=== PATIENT | female | born 1990 | race Asian ===

== ENCOUNTER 2016-04-23 13:04 | Inpatient (IN) | payer BC ==
[~2016-04-23] VITALS: Ht 157.5 cm; Wt 67.5 kg
[2016-04-23] VITALS (15 sets, daily range): BP systolic 115–136; BP diastolic 60–77
[2016-04-23] MEDS ORDERED: PRENATAL TABLE1 EACH PO (14:00)
[2016-04-23 14:18] LABS: HEMATOCRIT 35.4 % (36.0-46.0); MCH 30.3 PG (29.0-34.0); MCHC 35.3 G/DL (30.0-36.0); MCV 85.9 FL (83-99); MEAN PLAT.VOLUME 10.4 uM^3 (9.5-12.4); NRBC (%) 0.7 /100 WBC (0-0); PLATELET COUNT 194 K/uL (156-360); RBC DIS.WIDTH-CV 14.8 % (11.8-14.6); RBC DIS.WIDTH-SD 46.2 % (39-53); RED BLOOD COUNT 4.12 M/uL (3.80-5.20); WHITE BLOOD COUNT 8.6 K/uL (4.1-10.2)
[2016-04-23 16:14] LABS: ABS NEUTROPHIL COUNT 5.01; ANISOCYTOSIS 1+; PLAT.SUFFICIENCY ADEQUATE; USER ID NPD
[2016-04-23 16:15] LABS: DELETE MACHINE DIFF? YES
[2016-04-24] VITALS (9 sets, daily range): BP systolic 108–122; BP diastolic 57–71
[2016-04-24] MEDS ORDERED: PERCOCET 5/31 TABLET PO (00:55)
[2016-04-24] MEDS ORDERED: MOTRIN800 MG PO (00:55)
[2016-04-25 07:59] VITALS: BP 116/67
[2016-04-25 09:14] LABS: EOSINOPHIL (%) 1.6 % (0-5); EOSINOPHIL COUNT 0.2 K/uL (0-0.3); IMMATURE GRANULOCYTE (%) 0.4 % (0.0-0.7); LYMPHOCYTE COUNT 2.1 K/uL (1.0-2.8); MCH 29.6 PG (29.0-34.0); MCHC 33.9 G/DL (30.0-36.0); MCV 87.1 FL (83-99); MEAN PLAT.VOLUME 10.7 uM^3 (9.5-12.4); MONOCYTE (%) 4.3 % (3-12); MONOCYTE COUNT 0.5 K/uL (0-0.8); NEUTROPHIL (%) 74.5 % (45-76); NEUTROPHIL COUNT 8.4 K/uL (1.8-6.4); PLATELET COUNT 186 K/uL (156-360); RBC DIS.WIDTH-CV 14.9 % (11.8-14.6); RBC DIS.WIDTH-SD 46.4 % (39-53); RED BLOOD COUNT 3.79 M/uL (3.80-5.20)
[2016-04-25 09:18] LABS: WHITE BLOOD COUNT 11.3 K/uL (4.1-10.2)
== END 2016-04-25 17:29 | disposition home or self-care (01) | DRG 775 ==
LOC: LDRP-OP 13:04 → 2WEST 13:05 → LDRP-OP 05-30 10:26
PROVIDERS: Midwife
PROC: 10E0XZZ Delivery of Products of Conception, External Approach (ICD-10-PCS; principal; 2016-04-23)
PROC: 0KQM0ZZ Repair Perineum Muscle, Open Approach (ICD-10-PCS; principal; 2016-04-23)
PROC: 00HU33Z Insertion of Infusion Device into Spinal Canal, Percutaneous Approach (ICD-10-PCS; principal; 2016-04-23)
PROC: 3E0R3CZ (ICD-10-PCS; principal; 2016-04-23)
DX: O70.1 Second degree perineal laceration during delivery (principal); Z3A.38 38 weeks gestation of pregnancy; Z37.0 Single live birth
CPT/HCPCS: 85025; C1755; J0595; J3010; J7120

== ENCOUNTER → 2016-06-10 | Outpatient (CLI) | payer BC ==
[~2016-06-10] MED LIST: MOTRIN800 MG PO; PERCOCET 5/31 TABLET PO; PRENATAL TABLE1 EACH PO
== END | disposition home or self-care (01) ==
LOC: LAC 11:58
DX: O92.79 Other disorders of lactation (principal)
CPT/HCPCS: G0463